=== PATIENT | female | born 1955 | race Two or more races ===

== ENCOUNTER 2018-07-14 09:09 | Inpatient (IN) | payer OTHER ==
[~2018-07-14] VITALS: Ht 147.3 cm; Wt 83.9 kg
[~2018-07-14 09:09] MED LIST: MOXIFLOXACIN H400 MG; MUCINEX COLD L118 ML; PROMETHAZINE W473 ML PO; PROVENTIL3 ML/2.5 M IH
[2018-07-16] MEDS ORDERED: LEVAQUIN750 MG PO (08:34)
[2018-07-16] MEDS ORDERED: OSEL75CA PO (08:35)
[2018-07-16] MEDS ORDERED: OMEPRAZOLE20 M1 PO (08:36)
== END 2018-07-16 10:44 | disposition home or self-care (01) | DRG 194 ==
LOC: ER 09:09 → MEDJ 20:47 → MEDI 20:47
PROC: 4A033R1 Measurement of Arterial Saturation, Peripheral, Percutaneous Approach (ICD-10-PCS; principal; 2018-07-14)
PROC: 3E0F7GC Introduction of Other Therapeutic Substance into Respiratory Tract, Via Natural or Artificial Opening (ICD-10-PCS; 2018-07-14)
PROC: BB24ZZZ Computerized Tomography (CT Scan) of Bilateral Lungs (ICD-10-PCS; 2018-07-14)
DX: J16.8 Pneumonia due to other specified infectious organisms (principal); D47.Z2 Castleman disease